=== PATIENT | female | born 1940 | race Caucasian/White ===

== ENCOUNTER 2017-08-21 10:40 | Outpatient (CLI) | payer OTHER ==
[2016-05-20 11:56] VITALS: BMI 17.9
--- NOTE | 2017-08-21 11:15 | DI ---
EXAM: Five views of the lumbar spine HISTORY: Low back pain TECHNIQUE: AP lateral, oblique and coned-down lateral views of the lumbar spine were obtained. FINDINGS: There is straightening of the lumbar spine in the sagittal plane. No acute compression fr actures are seen. There is curvature of the lumbar spine to the left centered at the L3-L4 level denisa suring approximately 16 degrees. There is no pars defect. There is facet arthropathy seen within th e lower lumbar spine. There is diffuse moderate degenerative disc disease and lumbar spondylosis. Th ere is facet arthropathy seen throughout the lower lumbar spine. IMPRESSION: No evidence of acute compression fracture. Diffuse degenerative disc disease and lumbar spondylosis. Mild levoscoliosis of the lumbar spine.
== END 2017-08-21 10:41 | disposition home or self-care (01) ==
LOC: RAD 10:40
PROVIDERS: ATTEND Family Medicine
DX: M54.5 Low back pain (principal); G89.29 Other chronic pain

== ENCOUNTER 2017-11-16 15:04 | Outpatient (CLI) ==
[2016-05-20 11:56] VITALS: BMI 17.9
--- NOTE | 2017-11-16 15:40 | DI ---
EXAM: CHEST FRONTAL AND LATERAL VIEWS HISTORY: Cough. COMPARISON: 05/20/2016 FINDINGS: Borderline enlarged heart size is stable. There is moderate atherosclerotic disease. Ther e is diffuse, chronic appearing interstitial accentuation. Lungs are hyperinflated and there is rela tive lucency of the lung zones suggesting at least moderate chronic obstructive pulmonary disease. N o obvious superimposed pneumonia is identified although managing the patient on a clinical basis is r ecommended. No vascular congestion, pneumothorax or pleural fluid. IMPRESSION: Chronic obstructive pulmonary disease. No definite consolidated pneumonia. Managing the patient on a clinical basis is recommended.
== END 2017-11-16 15:05 | disposition home or self-care (01) ==
LOC: RAD 15:04
PROVIDERS: ATTEND Family Medicine
DX: R05 Cough (principal)